=== PATIENT | female | born 1945 | race Hispanic/Latino ===

== ENCOUNTER 2020-12-08 13:32 | Observation (INO) | payer MEDICARE ==
[~2020-12-08] VITALS: Ht 154.9 cm; Wt 65.8 kg
[2020-12-08] MEDS ORDERED: SODIUM CHLORIDE 0.9% 1000ML 1,000 ML IV SCH (14:30)
[2020-12-08 14:43] LABS: BASOPHILS % 0.2 % (0.0-1.0); EOSINOPHILS # (AUTO) 0.1 (0.0-0.4); EOSINOPHILS % 0.8 % (0.0-6.0); HEMATOCRIT 37.9 % (34.2-44.1); HEMOGLOBIN 12.6 g/dL (12.0-16.0); LYMPHOCYTES # (AUTO) 1.7 (1.0-3.2); LYMPHOCYTES % 20.7 % (18.0-39.1); MEAN CORPUSCULAR HGB CONC 33.2 g/dL (31-35); MEAN CORPUSCULAR VOLUME 90.2 fL (81-99); MONOCYTES # (AUTO) 0.4 (0.2-0.8); MONOCYTES % 4.7 % (4.4-11.3); NEUTROPHILS % 73.1 % (38.7-80.0); PLATELET COUNT 283 x10e3/uL (140-360)
[2020-12-08 14:58] LABS: INR 0.91; PROTHROMBIN TIME 12.4 seconds (11.9-14.5)
[2020-12-08 15:06] LABS: ALBUMIN 4.1 g/dL (3.5-5.0); ALBUMIN/GLOBULIN RATIO 1.1 (0.8-2.0); ANION GAP 16.7 mmol/L (8-16); CALCIUM 8.9 mg/dL (8.4-10.2); CREATININE, SERUM 0.82 mg/dL (0.57-1.11); POTASSIUM 3.7 mmol/L (3.5-5.1)
[2020-12-08] MEDS: ASPIRIN 81 MG CHEW TAB PO NR ×2 (16:00→16:48)
[2020-12-08] MEDS: ACETAMINOPHEN 325 MG TAB PO PRN (19:23)
[2020-12-08 20:43] VITALS: BP 151/69
[2020-12-08 21:00] VITALS: BP 151/69
[2020-12-08] MEDS ORDERED: ONDANSETRON HCL INJ 2MG/ML 2ML 2 MG/ML VIAL IV PRN (21:15)
[2020-12-08] MEDS ORDERED: HYDRALAZINE HCL 20 MG/ML VIAL IV PRN (21:15)
[2020-12-08 21:17] VITALS: BP 151/69
[2020-12-09 00:59] VITALS: BP_SYST 100; BP_SYST 153; BP_DIAS 68; BP_DIAS 69
[2020-12-09] MEDS: ACETAMINOPHEN 325 MG TAB PO PRN ×2 (01:14→11:19)
[2020-12-09 04:43] VITALS: BP 151/72
[2020-12-09 05:02] LABS: BASOPHILS % 0.4 % (0.0-1.0); EOSINOPHILS # (AUTO) 0.2 (0.0-0.4); EOSINOPHILS % 2.3 % (0.0-6.0); HEMATOCRIT 34.4 % (34.2-44.1); HEMOGLOBIN 11.2 g/dL (12.0-16.0); LYMPHOCYTES % 28.9 % (18.0-39.1); MEAN CORPUSCULAR HGB CONC 32.6 g/dL (31-35); MEAN CORPUSCULAR VOLUME 92.2 fL (81-99); MONOCYTES # (AUTO) 0.4 (0.2-0.8); MONOCYTES % 6.3 % (4.4-11.3); NEUTROPHILS # (AUTO) 4.3 (2.1-6.9); NEUTROPHILS % 61.8 % (38.7-80.0); PLATELET COUNT 233 x10e3/uL (140-360); RED BLOOD COUNT 3.73 x10e6/uL (3.6-5.1); RED CELL DISTRIBUTION WIDTH 13.2 % (11.7-14.4)
[2020-12-09 05:31] LABS: ANION GAP 13.6 mmol/L (8-16); CALCIUM 8.3 mg/dL (8.4-10.2); CREATININE, SERUM 0.66 mg/dL (0.57-1.11); POTASSIUM 3.6 mmol/L (3.5-5.1)
[2020-12-09 06:00] LABS: CHOL/HDL RATIO 2.1 (3.0-3.6)
[2020-12-09 08:00] VITALS: BP 142/65
[2020-12-09 08:06] VITALS: BP 142/65
[2020-12-09] MEDS ORDERED: ASPIRIN 81 MG CHEW TAB PO SCH (09:00)
[2020-12-09 12:07] VITALS: BP 152/71
[2020-12-09] MEDS ORDERED: ASPIRIN CHEW81 MG PO (14:42)
== END 2020-12-09 15:23 | disposition home or self-care (01) ==
LOC: ER 13:45 → ERHOLD 16:38 → MED/SURG2 20:38
PROVIDERS: ADMIT Internal Medicine; ATTEND Internal Medicine
DX: R29.810 Facial weakness (principal); I10 Essential (primary) hypertension; E03.9 Hypothyroidism, unspecified; E78.00 Pure hypercholesterolemia, unspecified; Z20.822 Contact with and (suspected) exposure to COVID-19
CPT/HCPCS: 36415 ×2; 70450; 70551; 80048; 80053; 80061; 82948; 83036; 84484; 85025 ×2; 85610; 92526; 92610; 93005; 99283; G0378 ×2; J7030; U0002